=== PATIENT | female | born 1990 | race Caucasian/White ===

== ENCOUNTER 2016-12-22 14:47 | Emergency (ER) | payer MEDICAID ==
[2016-12-22 15:21] VITALS: RESP 16; TEMP 98.4
--- NOTE | 2016-12-22 15:54 | EDPHY ---
H & P Stated Complaint: RLQ pain 4 days-seen CU found PCOD and torsion R ovary. Time Seen by Provider: 12/22/16 15:54 HPI/ROS: CHIEF COMPLAINT: Right lower quadrant pain, uterine bleeding HISTORY OF PRESENT ILLNESS: The patient presents to the ED with right lower quadrant pain in uterine bleeding for the past 4 days. The patient was reportedly seen at a hospital on Wednesday and diagnosed with a right ovarian torsion. For reasons unclear, the patient was discharged home and advised to follow up with OBGYN. The patient saw her primary care provider today who urged her to come to the ED for further evaluation. The patient states that her pain has improved. She continues to have uterine bleeding. She reports she has a history of polycystic ovarian disease. The patient did have an ovarian torsion in December of 2015 requiring oophorectomy while living in [place]. The patient complains of 6/10 right lower quadrant pain. During the patient' s visit in the emergency department this past Wednesday she reportedly had a CT scan to also evaluate appendicitis which was negative. REVIEW OF SYSTEMS: A comprehensive 10 point review of systems is otherwise negative aside from elements mentioned in the history of present illness. Source: Patient - Personal History LMP (Females 10-55): Now Current Tetanus/Diphtheria Vaccine: Unsure Current Tetanus Diphtheria and Acellular Pertussis (TDAP): Unsure - Medical/Surgical History Hx Asthma: No Hx Chronic Respiratory Disease: No Hx Diabetes: No Hx Cardiac Disease: No Hx Renal Disease: No Hx Cirrhosis: No Hx Alcoholism: No Hx HIV/AIDS: No Hx Splenectomy or Spleen Trauma: No Other PMH: Polycystic ovarian disease, torsion of Left ovary. CT at neg for appy, R ovarian torsion noted-01/04, genital herpes, anemia, insomnia. - Social History Smoking Status: Light smoker - Physical Exam Exam: General Appearance: Alert, no distress Eyes: Pupils equal and round no pallor or injection ENT, Mouth: Mucous membranes moist Respiratory: There are no retractions, lungs are clear to auscultation Cardiovascular: Regular rate and rhythm Gastrointestinal: Minimal tenderness to palpation right lower quadrant Neurological: A&O, normal motor function, normal sensory exam, normal cranial nerves Skin: Warm and dry, no rashes Musculoskeletal: Neck is supple nontender Extremities: symmetrical, full range of motion Constitutional: Initial Vital Signs Temperature (C) 36.9 C 12/22/16 15:17 Heart Rate 88 04/04/17 15:17 Respiratory Rate 16 12/22/16 15:17 Blood Pressure 135/79 H 12/22/16 15:17 O2 Sat (%) 95 12/22/16 15:17 O2 Delivery Mode Room Air Allergies/Adverse Reactions: amoxicillin Allergy (Severe, Verified 12/22/16 15:21) Hives Penicillins Allergy (Severe, Verified 12/22/16 15:21) Hives Home Medications: Medication Instructions Recorded Acyclovir 12/22/16 Ferrous Sulfate 12/22/16 Zolpidem Tartrate 12/22/16 Medical Decision Making - Diagnostics Imaging: Imaging Impressions Pelvic/Renal Ultrasound 12/22/16 16:00 Impression: 1. Normal-appearing uterus. 2. Increased number of follicles associated with otherwise normal appearing right ovary. Rule out polycystic ovary. These findings discussed by telephone with Dr. Aftab Worthington at 1715 hrs. ED Course/Re-evaluation: There is no evidence of an ovarian torsion noted on the ultrasound today. The patient is hemodynamically stable and she is in no acute distress. The patient will be discharged home and encouraged to follow up with her primary care provider. Differential Diagnosis: Differential diagnosis considered includes ovarian torsion, ruptured ovarian cyst, polycystic ovarian syndrome - Data Points Laboratory Results: Laboratory Results 12/22/16 16:30 12/22/16 16:30 12/22/16 12/22/16 12/22/16 16:30 16:30 16:30 WBC 5.64 10^3/uL 10^3/uL (3.80-9.50) RBC 4.15 10^6/uL L 10^6/uL (4.18-5.33) Hgb 13.1 g/dL g/dL (12.6-16.3) Hct 39.5 % % (38.0-47.0) MCV 95.2 fL fL (81.5-99.8) MCH 31.6 pg pg (27.9-34.1) MCHC 33.2 g/dL g/dL (32.4-36.7) RDW 13.0 % % (11.5-15.2) Plt Count 335 10^3/uL 10^3/uL (150-400) MPV 10.0 fL fL (8.7-11.7) Neut % (Auto) 61.6 % % (39.3-74.2) Lymph % (Auto) 26.4 % % (15.0-45.0) Weakley % (Auto) 9.8 % % (4.5-13.0) Eos % (Auto) 0.9 % % (0.6-7.6) Baso % (Auto) 1.1 % % (0.3-1.7) Nucleat RBC Rel Count 0.0 % % (0.0-0.2) Absolute Neuts (auto) 3.48 10^3/uL 10^3/uL (1.70-6.50) Absolute Lymphs (auto) 1.49 10^3/uL 10^3/uL (1.00-3.00) Absolute Monos (auto) 0.55 10^3/uL 10^3/uL (0.30-0.80) Absolute Eos (auto) 0.05 10^3/uL 10^3/uL (0.03-0.40) Absolute Basos (auto) 0.06 10^3/uL 10^3/uL (0.02-0.10) Absolute Nucleated RBC 0.00 10^3/uL 10^3/uL (0-0.01) Immature Gran % 0.2 % % (0.0-1.1) Immature Gran # 0.01 10^3/uL 10^3/uL (0.00-0.10) Sodium 140 mEq/L mEq/L (134-144) Potassium 3.8 mEq/L mEq/L (3.5-5.2) Chloride 104 mEq/L mEq/L (97-110) Carbon Dioxide 25 mEq/l mEq/l (22-31) Anion Gap 11 mEq/L mEq/L (8-16) BUN 10 mg/dL mg/dL (7-23) Creatinine 0.6 mg/dL mg/dL (0.6-1.0) Estimated GFR > 60 Glucose 85 mg/dL mg/dL (70-100) Calcium 9.7 mg/dL mg/dL (8.5-10.4) Beta HCG, Qual NEGATIVE Medications Given: Discontinued Medications Ondansetron HCl (Zofran) 4 mg IVP EDNOW ONE Stop: 12/22/16 17:13 Last Admin: 12/22/16 17:16 Dose: 4 mg Oxycodone/Acetaminophen (Percocet 5/325) 2 tab PO EDNOW ONE Stop: 12/22/16 16:02 Last Admin: 12/22/16 16:30 Dose: 2 tab Departure - Departure Disposition: Home, Routine, Self-Care Clinical Impression: Ovarian cyst Condition: Good Instructions: Ovarian Cyst (ED) Additional Instructions: 1. There is no evidence of an ovarian torsion noted on the ultrasound today. 2. Please return to the emergency department for severe pain, vomiting or other concerns. 3. Please follow up with your primary care provider and OBGYN as scheduled. Referrals: LORRIE HERNANDEZ [Other] - As per Instructions
[2016-12-22] MEDS ORDERED: OXYCODONE/APAP 5/325 TAB PO ONE (16:01)
[2016-12-22 16:35] LABS: % IMMATURE GRANULYOCYTES 0.2 % (0.0-1.1); ABSOLUTE IMMATURE GRANULOCYTES 0.01 10^3/uL (0.00-0.10); ADD DIFF? NO; ADD MORPH? NO; ADD SCAN? NO; ATYPICAL LYMPHOCYTE FLAG 10 (0-99); FRAGMENT RBC FLAG 0 (0-99); HEMATOCRIT 39.5 % (38.0-47.0); HEMOGLOBIN 13.1 g/dL (12.6-16.3); LEFT SHIFT FLG 0 (0-99); LIPEMIA HEMOLYSIS FLAG 80 (0-99); MEAN CELL HEMOGLOBIN 31.6 pg (27.9-34.1); MEAN CELL HEMOGLOBIN CONCENTR. 33.2 g/dL (32.4-36.7); MEAN CELL VOLUME 95.2 fL (81.5-99.8); PLATELET CLUMPS FLAG 0 (0-99); PLATELET COUNT 335 10^3/uL (150-400); RED BLOOD CELL COUNT 4.15 10^6/uL (4.18-5.33)
[2016-12-22 17:06] LABS: ANION GAP 11 mEq/L (8-16); CALCIUM 9.7 mg/dL (8.5-10.4); CARBON DIOXIDE 25 mEq/l (22-31); CHLORIDE 104 mEq/L (97-110); CREATININE 0.6 mg/dL (0.6-1.0); GLOMERULAR FILTRATION RATE > 60; GLUCOSE 85 mg/dL (70-100); POTASSIUM 3.8 mEq/L (3.5-5.2); SODIUM 140 mEq/L (134-144)
[2016-12-22] MEDS ORDERED: ONDANSETRON 4 MG/2 ML VIAL IVP ONE (17:12)
[2016-12-22 17:58] VITALS: BP 130/78; PULSE 68; O2SAT 97
== END 2016-12-22 17:55 | disposition home or self-care (01) ==
DX: N83.209 Unspecified ovarian cyst, unspecified side (principal); F17.200 Nicotine dependence, unspecified, uncomplicated
CPT/HCPCS: 96374; J2405

== ENCOUNTER 2017-01-27 10:57 | Day surgery (SDC) | payer MEDICAID ==
--- NOTE | 2017-01-19 12:04 | GHP ---
[f rep st] HISTORY AND PHYSICAL DATE OF ADMISSION: 01/27/2017 ADMITTING DIAGNOSES: 1. Right lower quadrant abdominopelvic pain. 2. Abnormal uterine bleeding. HISTORY OF PRESENT ILLNESS: The patient is a 26-year-old 1, para 0-0-1- 0, who presented in late December with complaints of 4 months' duration of right lower quadrant abdominopelvic pain and abnormal bleeding for 1 year. The patient has a history of a laparoscopic LSO in December 2015 secondary to ovarian torsion and has had bleeding on a daily basis since. She had the IUD placed a month after surgery. This IUD was removed secondary to pain and questionable infection, pelvic inflammatory disease. The patient was then placed on Depo- Provera, and she still had continuous bleeding. She discontinued Depo in July 2016, then her right lower quadrant pain started. It is dull, constant , on a daily basis and at times can be sharp and stabbing. It is localized with no radiation. No exacerbating or relieving factors noted. The patient has been seen multiple times in the emergency department secondary to pain, and given oxycodone with minimal relief. Patient denies any urinary or bowel complaints. The patient does have a history of irritable bowel syndrome, and stomach issues which is currently being worked up for an autoimmune disorder. The patient was diagnosed with anemia and has been on an iron supplementation. Most recent visit in the emergency room was December 2016, and she did have an ultrasound done that showed a normal uterus measuring 6 x 3 x 3 cm, retroflexed ; right ovary normal appearing with small follicles with flow; normal endometrial thickness at 10 mm; and a small amount of free fluid. Discussed with the patient in the office different causes of her pain as well as abnormal uterine bleeding which may be consistent with endometriosis, which is a surgical diagnosis. Patient does desire surgery at this time to find out the exact cause of her pain and abnormal bleeding. We also discussed the use of hormonal treatment to help regulate cycles and also to help with endometriosis if she truly has that. The patient was given a prescription for Sprintec while we were getting the surgery scheduled. Patient tried Sprintec for about 5-7 days and noticed increased acne and did not like the pill and discontinued it. She is now considering Nexplanon. PAST OBSTETRIC HISTORY: In 2010, she had a miscarriage, not requiring a D and C. 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 She says cycles are irregular, and she usually bleeds for 6-7 days or can be irregular as well. Does state heavy flow along with painful cramping. Patient does not have a history of abnormal Pap smears. Does have a history of HSV but denies history of any other sexually transmitted diseases. PAST MEDICAL HISTORY: Depression, anxiety, migraine headaches, anemia, HSV-2. PAST SURGICAL HISTORY: Laparoscopic LSO in December 2015 secondary to ovarian torsion. MEDICATIONS: Acyclovir, ferrous sulfate, omeprazole, vitamin C, multivitamin. ALLERGIES: Penicillin and amoxicillin, reaction is hives. FAMILY HISTORY: Mom with migraines. Sister with blood disorder. Maternal grandmother colon cancer. Paternal grandfather lung cancer. SOCIAL HISTORY: Patient is single. She is sexually active, and uses condoms. She does admit to tobacco use, 1 pack a week for 7 years. Alcohol use 3 times per week, and marijuana use on a daily basis. LABS: H and H, 13.6 and 40.9. PHYSICAL EXAM: GENERAL: Well-nourished, well-developed female. Alert and oriented x3 on admission. VITAL SIGNS: Stable. Afebrile. CARDIOVASCULAR: Regular rate and rhythm. LUNGS: Clear to auscultation bilaterally. ABDOMEN: Soft, nondistended, mild tenderness to palpation in the right lower quadrant. PELVIC: Bimanual exam: Normal-size uterus, retroverted. No masses, nontender. Right ovary is nontender, no masses. ASSESSMENT: The patient is a 26-year-old 1, para 0-0-1-0, with abnormal uterine bleeding and right lower quadrant abdominopelvic pain. PLAN: 1. Discussed the procedure, diagnostic laparoscopy, its limitations, n.p.o. status, preop, and postop recovery. Discussed that we may not find a cause for her pain, and her pain may not improve after the procedure. She understands and wants to proceed with surgery. 2. Surgical consents were obtained at bedside. Risks, benefits, and alternatives reviewed with the patient, including but not limited to, bleeding, infection, and damage to surrounding organs. The patient does understand all risks and does want to proceed with surgery at this time. 3. Antibiotics on-call to OR. We will use clindamycin since ALLERGIC TO PENICILLIN. 4. SCDs for DVT prophylaxis. 5. Discussed smoking cessation prior to OR. /[id number]/MODL AIRAM
[~2017-01-27 10:57] MED LIST: BUPIVACAINE 0.25% 30 ML SDV ONE; CLINDAMYCIN 600 MG/DEXTROSE 50 ML IV ONE; SILVER NITRATE APPLICATOR 1 APPL TP ONE
[2017-01-27] MEDS ORDERED: LIDOCAINE 1% 5 ML SDV ID PRN (11:34)
[2017-01-27] MEDS ORDERED: LR 1,000 ML IV ONE (11:34)
[2017-01-27] MEDS ORDERED: CLINDAMYCIN 600 MG/DEXTROSE/50 ML BAG IV ONE (11:40)
[2017-01-27] MEDS ORDERED: LIDOCAINE 1% 2 ML INJ ONE (11:40)
[2017-01-27] MEDS ORDERED: SCOPOLAMINE HYDROBROMIDE 1.5 MG PATCH TD ONE (12:33)
[2017-01-27] MEDS ORDERED: MIDAZOLAM 2 MG/2 ML VIAL ONE (12:33)
[2017-01-27] MEDS ORDERED: ROCURONIUM 50 MG/5 ML VIAL ONE (12:36)
[2017-01-27] MEDS ORDERED: PROPOFOL 200 MG/20 ML VIAL ONE (12:36)
[2017-01-27] MEDS ORDERED: LIDOCAINE 2% 5 ML SDV ONE (12:38)
[2017-01-27] MEDS ORDERED: HYDROmorphONE/DILAUDID 2 MG/ML INJ ONE (12:39)
[2017-01-27] MEDS ORDERED: ONDANSETRON 4 MG/2 ML VIAL ONE (12:58)
[2017-01-27] MEDS ORDERED: DEXAMETHASONE 4 MG/ML VIAL ONE (12:58)
[2017-01-27] MEDS ORDERED: METOCLOPRAMIDE 10 MG/2 ML VIAL ONE (12:58)
[2017-01-27] MEDS ORDERED: GLYCOPYRROLATE 0.2 MG/1 ML VIAL ONE ×2 (13:38)
[2017-01-27] MEDS ORDERED: NEOSTIGMINE METHYLSULFATE 5 MG/5 ML SYR ONE (13:38)
[2017-01-27] MEDS ORDERED: fentaNYL 100 MCG/2 ML INJ ONE ×2 (14:11→14:35)
--- NOTE | 2017-01-27 15:08 | GOP ---
[f rep st] OPERATIVE REPORT DATE OF OPERATION: 01/27/2017 SURGEON: Ann Neal DO TELEGRAPH OPERATOR: Brenda Siu DO. ANESTHESIA: General endotracheal. PREOPERATIVE DIAGNOSIS: 1. Abnormal uterine bleeding. 2. Right lower quadrant abdominal pelvic pain. POSTOPERATIVE DIAGNOSIS: 1. Abnormal uterine bleeding. 2. Right lower quadrant abdominal pelvic pain. 3. Endometriosis. 4. Pelvic adhesions. PROCEDURE PERFORMED: Diagnostic laparoscopy with lysis of adhesions. FINDINGS: Grossly normal-appearing uterus, right tube and right ovary. Left tube and left ovary surgically absent. There were thin, filmy adhesions noted of the right adnexa as well as the posterior uterus. Upper abdomen grossly normal appearing. Appendix grossly normal appearing. SPECIMENS: None. ESTIMATED BLOOD LOSS: 5 cc. INDICATIONS: Patient is a 26-year old, , who presented to the office with complaints of about 4 months duration of right lower quadrant pain, as well as abnormal uterine bleeding for one year. I discussed with the patient that her symptoms may be consistent with endometriosis, which is a surgical diagnosis. The patient wants to proceed with surgery to determine the cause of her pain and abnormal uterine bleeding. All risks of the procedure were reviewed with the patient and she understands these risks and wants to proceed with surgery at this time. DESCRIPTION OF PROCEDURE: Patient was taken the operating room, where general anesthesia was obtained without difficulty. Patient was placed in dorsal lithotomy position. On Bimanual exam, there was a normal uterus and normal right adnexa. Patient was prepped and draped in the usual sterile manner. Arciniega catheter was placed in her bladder. An open-sided speculum was placed in the vagina. The anterior lip of the cervix was grasped with a single-tooth tenaculum. The uterus was then sounded to 7 cm, and an acorn was then advanced through the cervix and used as a means to manipulate the uterus. We then turned our attention to the patient's abdomen. Infraumbilical area was injected with 0.25% plain Marcaine and a 5 mm infraumbilical skin incision was made with a knife. A Veress needle was inserted very carefully while tenting the abdominal wall. Aspiration was negative. The abdomen was then insufflated with carbon dioxide, pneumoperitoneum was obtained. After adequate insufflation , the Veress needle was removed. A 5 mm trocar was then introduced through the infraumbilical incision into the abdominal cavity directly with the laparoscope. The patient was then placed in Trendelenburg position. There was adequate visualization of the pelvic structures at this time. After injection of more local, another 5 mm skin incision was made in the left lower quadrant as well as another 5 mm skin incision was made in the right lower quadrant. Atraumatic trocars were then placed. Pelvic findings were noted above. At this time using the hot scissors, the filmy adhesions noted of the right adnexa were taken down as well as the thin, filmy adhesions of the posterior uterus. There was noted to be some bleeding from these areas and hot scissors were used to cauterize these areas and hemostasis was achieved. At this time, the right ovary and the right tube were freed from the pelvic sidewall and no other adhesions were noted. The pelvis was then irrigated copiously with normal saline. Again, everything appeared hemostatic. We placed surgical Benson for further hemostasis. All instruments were then removed from the abdomen. All gas was allowed to escape from the abdomen. Skin incisions of the 5 mm ports were closed with 3-0 Vicryl and covered with Steri-Strips and Band-Aids. Patient tolerated the procedure well. No complications. Sponge, lap and needle counts were correct x2. The patient was then awakened, taken out of dorsal lithotomy position and taken to the recovery room in stable condition. IV FLUIDS: 650 cc of LR. URINE OUTPUT: 100 cc of clear urine at the end of the procedure. /[id number]/MODL MTDD
[2017-01-27] MEDS ORDERED: OXYCODONE/APAP 5/325 TAB ONE ×2 (15:25)
== END 2017-01-27 16:40 | disposition home or self-care (01) ==
LOC: FSGY 10:57
PROVIDERS: ATTEND Obstetrics & Gynecology
PROC: 0UN54ZZ Release Right Fallopian Tube, Percutaneous Endoscopic Approach (ICD-10-PCS; principal; 2017-01-27 12:30)
PROC: 0UN04ZZ Release Right Ovary, Percutaneous Endoscopic Approach (ICD-10-PCS; principal; 2017-01-27 12:30)
DX: N93.8 Other specified abnormal uterine and vaginal bleeding (principal); N80.3 Endometriosis of pelvic peritoneum; N73.6 Female pelvic peritoneal adhesions (postinfective); N92.1 Excessive and frequent menstruation with irregular cycle; D64.9 Anemia, unspecified; Z86.010 Personal history of colon polyps; K21.9 Gastro-esophageal reflux disease without esophagitis; F32.9 Major depressive disorder, single episode, unspecified; Z88.0 Allergy status to penicillin
CPT/HCPCS: J1100; J1170; J2250; J2405; J2704; J2710; J2765; J3010